=== PATIENT | female | born 1980 | race Caucasian/White ===

== ENCOUNTER → 2017-01-02 | Outpatient (REF) | payer OTHER ==
[2017-01-02 22:03] LABS: MICROSCOPIC INDICATED? MAN YES (NO)
[2017-01-02 22:24] LABS: WBC, URINE 15-20 /hpf (0-3)
[2017-01-02 22:25] LABS: BACTERIA, URINE MOD AMOUNT; SQUAMOUS EPITHELIAL CELL URINE MOD AMOUNT /hpf (SMALL AMT)
[2017-01-02 22:26] LABS: HYALINE CAST, URINE NONE SEEN /lpf (0-1)
[2017-01-02 22:29] LABS: MICROSCOPIC EXAM PERFORMED
== END ==
LOC: M LAB REF 21:39
PROVIDERS: ATTEND Physician Assistant Medical
DX: N39.0 Urinary tract infection, site not specified (principal)

== ENCOUNTER → 2017-01-05 | Outpatient (CLI) | payer OTHER ==
--- NOTE | 2017-01-05 14:10 | REP ---
KUB ABDOMEN AND PELVIS: KUB film of the abdomen and pelvis is performed. Moderate fecal material is seen in the transverse and right colon. There is no small bowel obstruction. Rounded calcification overlies the upper pole of the right renal shadow, which I suspect represents a renal calculus 5 mm in diameter. In the pelvis, there is a 2 mm calcification on the right inferiorly and a 1 mm calcification on the left inferiorly. These probably represent phleboliths. Metallic clips are seen in the right upper quadrant presumably status post cholecystectomy. IMPRESSION: 5 mm calculus upper pole right kidney. Tiny calcification on each side of the pelvis inferiorly probably represents phleboliths. Further evaluation may be made with noncontrast CT of the abdomen and pelvis if clinically indicated. Signed by Vijay Heredia MD 01/05/2017 03:56 P
[2017-01-05 18:45] LABS: BASO % 0.5 % (0.0-1.0); EOS # 0.2 K/mm3 (0.0-0.50); EOS % 2.9 % (0.0-3.0); LARGE UNSTAINED CELL # 0.1 K/mm3 (0.0-0.4); LARGE UNSTAINED CELL % 2.1 % (0.0-4.0); LYMPH # 1.4 K/mm3 (1.5-4.5); LYMPH % 25.3 % (24.0-44.0); MEAN CORPUSCULAR HEMOGLOBIN 29.8 pg (27.0-33.0); MEAN CORPUSCULAR HGB CONC 33.4 g/dl (32.0-36.5); MEAN CORPUSCULAR VOLUME 89.3 fl (80.0-96.0); MONO # 0.3 K/mm3 (0.0-0.8); MONO % 4.7 % (0.0-5.0); NEUTROPHILS # 3.5 K/mm3 (1.8-7.7); NEUTROPHILS % 64.5 % (36.0-66.0); PLATELET COUNT, AUTOMATED 239 k/mm3 (150-450); RED CELL DISTRIBUTION WIDTH 13.2 % (11.5-14.5); WHITE BLOOD COUNT 5.4 K/mm3 (4.0-10.0)
== END ==
LOC: M SMT 13:18
PROVIDERS: ATTEND Nurse Practitioner Family
DX: N20.0 Calculus of kidney (principal)

== ENCOUNTER → 2017-01-13 | Outpatient (CLI) | payer OTHER ==
[~2017-01-13] MED LIST: KETO10TAB PO
--- NOTE | 2017-01-13 19:06 | REP ---
CT ABDOMEN: REASON: Known renal calculi. COMPARISON: None. The lung bases are clear. Limited evaluation of the solid intraabdominal organs show no gross abnormalities. Surgical clips are seen in the gallbladder fossa from previous cholecystectomy. Limited evaluation of the pancreas and adrenal glands show no gross abnormalities. There is a 6 mm sized calcification in the interpolar region of the right kidney superiorly, not causing obstructing phenomenon. There are no left nephroliths. There are no ureteroliths, hydronephrosis, or hydroureter. There are no urinary bladder calcifications. There are bilateral pelvic phleboliths. Limited evaluation of the bowel loops and their mesenteries show no gross abnormalities. No free fluid or free air is seen in the abdomen or pelvis. Bone window technique throughout the examination shows the osseous structure to be within normal limits for the patient's age. IMPRESSION: Nonobstructing right nephrolith as described above. Signed by Rios Jolly DO 01/13/2017 07:27 P
== END ==
LOC: M RAD 17:28
PROVIDERS: ATTEND Nurse Practitioner Women's Health
DX: N20.0 Calculus of kidney (principal)